=== PATIENT | female | born 1990 | race Caucasian/White ===

== ENCOUNTER 2018-06-01 11:37 | Emergency (ER) | payer MEDICAID ==
[~2018-06-01] VITALS: Ht 162.6 cm; Wt 73.0 kg
[2018-06-01 12:00] VITALS: Ht 162.6 cm; Wt 73.0 kg
[2018-06-01 13:40] VITALS: BP 108/77
== END 2018-06-01 13:40 | disposition home or self-care (01) ==
LOC: ED 11:37
DX: S39.012A Strain of muscle, fascia and tendon of lower back, initial encounter (principal); Z88.0 Allergy status to penicillin; Z88.1 Allergy status to other antibiotic agents; W10.8XXA Fall (on) (from) other stairs and steps, initial encounter; Y93.89 Activity, other specified; Y92.218 Other school as the place of occurrence of the external cause; Y99.8 Other external cause status